=== PATIENT | female | born 1955 | race Asian ===

== ENCOUNTER 2022-02-04 00:13 | Emergency (ER) | payer BC ==
[~2022-02-04] VITALS: Ht 158.8 cm; Wt 55.9 kg
[2022-02-04 00:23] VITALS: BP 158/78
--- NOTE | 2022-02-04 00:27 | NUR ---
pt sent back to lobby, waiting for bed.
--- NOTE | 2022-02-04 00:48 | NUR ---
pt taken to bed 5.
--- NOTE | 2022-02-04 01:00 | NUR ---
66 Y/O FEMALE BIB SELF, C/O RASH TO LEFT SHOULDER X2 DAYS. PATIENT PRESENTS TO ED WITH LEFT SHOULDER STIFFNES AND ACHE AND RED CLUSTERED RASH. PT STATES SHE RECENTLY RETURNED FROM [place] 2 DAYS AGO BUT THE RASH DEVELOPED AFTER HER RETURN. DENIES N/V/D; SKIN IS PINK/WARM/DRY; AAOX4 WITH EVEN AND STEADY GAIT; LUNGS CLEAR BL; HR EVEN AND REGULAR; PT DENIES ANY FEVER, CP, SOB, OR COUGH AT THIS TIME; PATIENT DENIES PAIN AT THIS TIME; VSS; PATIENT POSITIONED FOR COMFORT; HOB ELEVATED; BEDRAILS UP X2; BED DOWN. ER MD MADE AWARE OF PT STATUS. HX: HTN HLD NKA MED: LOSARTAN, ATORVASTATIN
[2022-02-04] MEDS ORDERED: CLINDAMYCIN 150 MG CAP PO ONE (01:35)
[2022-02-04] MEDS ORDERED: BACTO TP (01:40)
[2022-02-04] MEDS ORDERED: CLIN300C52 PO (01:40)
[2022-02-04 02:02] VITALS: BP 166/92
--- NOTE | 2022-02-04 02:02 | NUR ---
Patient discharged with v/s stable. Written and verbal after care instructions given and explained. Patient alert, oriented and verbalized understanding of instructions. Ambulatory with steady gait. All questions addressed prior to discharge. ID band removed. Patient advised to follow up with PMD. Rx of BACTROBAN, CLINDAMYCINHCL given. Opportunity to ask questions provided and answered.
== END 2022-02-04 02:02 | disposition home or self-care (01) ==
LOC: MED 00:13
DX: S40.262A Insect bite (nonvenomous) of left shoulder, initial encounter (principal); I10 Essential (primary) hypertension; E78.5 Hyperlipidemia, unspecified; Z79.2 Long term (current) use of antibiotics; Z88.0 Allergy status to penicillin; W57.XXXA Bitten or stung by nonvenomous insect and other nonvenomous arthropods, initial encounter; Y92.89 Other specified places as the place of occurrence of the external cause; Y93.89 Activity, other specified; Y99.8 Other external cause status
CPT/HCPCS: 99283